=== PATIENT | male | born 1970 ===

== ENCOUNTER 2021-04-17 18:49 | Emergency (ER) | payer SELFPAY ==
[2021-04-17 18:59] VITALS: BP 147/84
[2021-04-17] MEDS ORDERED: DOCUSATE SODIUM 100 MG/10 ML ORAL LIQD OT ONE (21:47)
--- NOTE | 2021-04-17 21:47 | Emergency Department Report ---
ED ENT HPI - General Chief complaint: Earache Stated complaint: BUG IN EAR Time Seen by Provider: 04/17/21 21:46 Source: patient, family Mode of arrival: Ambulatory Limitations: Language Barrier - History of Present Illness Initial comments: Patient presents to the ER today with complaints of a bug in his left ear. He states that he felt a crawling his left ear last night. He went to urgent care prior to coming here and he tried to irrigate it but was unsuccessful and recommended he come to the ER. He denies any bleeding or pain or any additional symptoms. complaint: other (Foreign body left ear) -: days(s) (1) - Related Data Previous Rx's Medication Instructions Recorded Last Taken Type Amoxicillin [Trimox CAP] 500 mg PO Q8H #30 capsule 04/17/21 Unknown Rx Ciprofloxacin HCl/Dexameth 1 drop OTIC BID #7.5 ml 04/17/21 Unknown Rx [Ciprodex Otic Suspension] Ibuprofen [Motrin] 600 mg PO Q8H PRN #30 tablet 04/17/21 Unknown Rx Allergies Allergy/AdvReac Type Severity Reaction Status Date / Time No Known Allergies Allergy Unverified 04/17/21 18:55 ED Dental HPI - General Chief complaint: Earache Stated complaint: BUG IN EAR Time Seen by Provider: 04/17/21 21:46 Source: patient, family Mode of arrival: Ambulatory Limitations: Language Barrier - Related Data Previous Rx's Medication Instructions Recorded Last Taken Type Amoxicillin [Trimox CAP] 500 mg PO Q8H #30 capsule 04/17/21 Unknown Rx Ciprofloxacin HCl/Dexameth 1 drop OTIC BID #7.5 ml 04/17/21 Unknown Rx [Ciprodex Otic Suspension] Ibuprofen [Motrin] 600 mg PO Q8H PRN #30 tablet 04/17/21 Unknown Rx Allergies Allergy/AdvReac Type Severity Reaction Status Date / Time No Known Allergies Allergy Unverified 04/17/21 18:55 ED Review of Systems ROS: Stated complaint: BUG IN EAR Other details as noted in HPI Comment: All other systems reviewed and negative Constitutional: denies: chills, fever, malaise, weakness Eyes: denies: eye pain, eye discharge, vision change ENT: other (Foreign body left ear) Respiratory: denies: cough, shortness of breath, SOB with exertion, SOB at rest, wheezing Cardiovascular: denies: chest pain, palpitations Gastrointestinal: denies: nausea, vomiting, diarrhea, constipation, hematemesis, melena, hematochezia Genitourinary: denies: urgency, dysuria, frequency, hematuria, discharge, testicular pain, testicular mass Musculoskeletal: denies: back pain, joint swelling, arthralgia Skin: denies: rash, lesions, change in color, change in hair/nails, pruritus Neurological: denies: headache, weakness, numbness, paresthesias, confusion, abnormal gait, vertigo Psychiatric: denies: anxiety, depression, auditory hallucinations, visual hallucinations, homicidal thoughts Hematological/Lymphatic: denies: easy bleeding, easy bruising ED Past Medical Hx - Medications Home Medications: Home Medications Medication Instructions Recorded Confirmed Last Taken Type Amoxicillin [Trimox CAP] 500 mg PO Q8H #30 capsule 04/17/21 Unknown Rx Ciprofloxacin HCl/Dexameth 1 drop OTIC BID #7.5 ml 04/17/21 Unknown Rx [Ciprodex Otic Suspension] Ibuprofen [Motrin] 600 mg PO Q8H PRN #30 tablet 04/17/21 Unknown Rx ED Physical Exam - General Limitations: Language Barrier General appearance: alert, in no apparent distress - Head Head exam: Present: atraumatic, normocephalic, normal inspection - Eye Eye exam: Present: normal appearance, PERRL, EOMI Pupils: Present: normal accommodation - Expanded ENT Exam Expanded TM/Canal exam: Erythema: Left TM, Foreign Body: Left TM ( bug (probably cockroach)), Canal Tenderness: Left TM - Neck Neck exam: Present: normal inspection, full ROM. Absent: meningismus - Respiratory Respiratory exam: Present: normal lung sounds bilaterally. Absent: respiratory distress, wheezes, rales, rhonchi - Cardiovascular Cardiovascular Exam: Present: regular rate, normal rhythm, normal heart sounds - Neurological Exam Neurological exam: Present: alert, oriented X3, CN II-XII intact, normal gait - Psychiatric Psychiatric exam: Present: normal affect, normal mood - Skin Skin exam: Present: intact ED Course Vital Signs 04/17/21 18:57 Temperature 99.6 F Pulse Rate 59 L Respiratory 18 Rate Blood Pressure 147/84 [Right] O2 Sat by Pulse 100 Oximetry ED Medical Decision Making - Medical Decision Making Patient presents to the ER today with complaints of a bug in his left ear. He states that he felt a crawling his left ear last night. He went to urgent care prior to coming here and he tried to irrigate it but was unsuccessful and recommended he come to the ER. He denies any bleeding or pain or any additional symptoms. 2353: There is a bug in the ear canal near the eardrum. It is . I attempted ear irrigation but patient unable to tolerate due to discomfort and pain. Ear canal also irritated and erythematous and TM also erythematous. Procedure stopped due to patient discomfort. Patient informed he will need to follow-up with security researcher to have the bug removed in the meantime he will be placed on antibiotics as a precaution and given medications for pain. Patient expressed understanding agree with plan. Patient was stable at time of discharge. Critical care attestation.: If time is entered above; I have spent that time in minutes in the direct care of this critically ill patient, excluding procedure time. ED Disposition Clinical Impression: Ear foreign body, Ear canal abrasion Disposition: HOME / SELF CARE / HOMELESS Is pt being admited?: No Does the pt Need Aspirin: No Condition: Stable Instructions: Abrasion, [id number], Ear Foreign Body, [id number] Additional Instructions: You will need to follow-up with the ENT to have the bug removed. An ENT will be provided to you on your discharge instructions. In the meantime I recommend that you use antibiotic eardrops as well as oral antibiotics for possible infection. Take the Motrin as prescribed to help with any pain. Try to avoid any water in your ear. Return to the ER if your symptoms changes or worsens in any way. Prescriptions: Ciprofloxacin HCl/Dexameth [Ciprodex Otic Suspension] 1 drop OTIC BID #7.5 ml Ibuprofen [Motrin] 600 mg PO Q8H PRN #30 tablet PRN Reason: Pain Amoxicillin [Trimox CAP] 500 mg PO Q8H #30 capsule Referrals: [facility] MD [Primary Care Provider] - 3-5 Days SIMON OVERTON MD [Referring] - 3-5 Days Forms: Work/School Release Form(ED) Time of Disposition: 22:45
== END 2021-04-17 23:01 | disposition home or self-care (01) ==
LOC: ED 18:49
DX: T16.2XXA Foreign body in left ear, initial encounter (principal); Z79.899 Other long term (current) drug therapy; X58.XXXA Exposure to other specified factors, initial encounter; Y93.89 Activity, other specified; Y92.89 Other specified places as the place of occurrence of the external cause; Y99.8 Other external cause status
CPT/HCPCS: 99283